=== PATIENT | male | born 1985 | race Caucasian/White ===

== ENCOUNTER → 2022-06-09 | Emergency (ER) | payer BC ==
[~2022-06-09] VITALS: Ht 165.1 cm; Wt 74.8 kg
[~2022-06-09] MED LIST: ACETAMINOPHEN ES 500 MG TABLET ONE; ACETAMINOPHEN ES 500 MG TABLET PO ONE; CYCL5TAB PO; IBUP-1955 PO; IV NS 0.9% 1,000 ML BAG IV ONE; KETOROLAC TROMETHAMINE 15 MG/ML VIAL ONE; KETOROLAC TROMETHAMINE INJ 30 MG/ML VIAL IV ONE; METH4TAB17 PO
--- NOTE | 2022-06-09 09:02 | NUR ---
AAOX3, C/O WORSENING LOWER BACK PAIN RADIATES TO LEFT GROIN AND LEFT TESTICLE. PATIENT REPORTED THAT HE HAD RECENT FALL LAST DECEMBER 2021, BUT STAES THAT HE HAD PRIOR BACK PAIN. SKIN IS WARM AND DRY. AWAITING MD FOR EVAL.
--- NOTE | 2022-06-09 09:12 | NUR ---
DR CASTANEDA AT BS FOR EVAL.
[2022-06-09 09:43] LABS: BASOPHILS % (AUTO) 0.3 % (0.0-2.0); EOSINOPHILS % (AUTO) 0.9 % (0.0-6.0); HEMATOCRIT 47 % (39-51); HEMOGLOBIN 15.9 g/dL (13.5-17.5); LYMPHOCYTES % (AUTO) 32.5 % (20.0-44.0); MEAN CORPUSCULAR HGB CONC 34 g/dl (31.0-36.0); MEAN CORPUSCULAR VOLUME 89 fL (80-96); MONOCYTES # (AUTO) 0.4 K/uL (0.1-1.30); MONOCYTES % (AUTO) 6.5 % (2.0-12.0); NEUTROPHILS # (AUTO) 3.6 K/uL (1.8-8.9); NEUTROPHILS % (AUTO) 59.8 % (43.0-81.0); PLATELET COUNT (AUTO) 234 K/uL (150-450); RED BLOOD CELL COUNT(AUTO) 5.31 MIL/uL (4.5-6.0)
--- NOTE | 2022-06-09 09:43 | NUR ---
established iv line 20g LAC , blood sample obtained sent to lab
--- NOTE | 2022-06-09 10:21 | NUR ---
urine sample obtained sent to lab
[2022-06-09 10:50] LABS: BILIRUBIN,URINE NEGATIVE (NEGATIVE); COLOR,URINE YELLOW (YELLOW); LEUKOCYTE ESTERASE ,URINE NEGATIVE (NEGATIVE); NITRITE, URINE NEGATIVE (NEGATIVE); PROTEIN,URINE NEGATIVE (NEGATIVE); UGLUCOSE NEGATIVE (NEGATIVE); UROBILINOGEN,URINE 0.2 EU/dL (0.2)
[2022-06-09 10:51] LABS: ALBUMIN 4.5 g/dL (3.4-5.0); BILIRUBIN,DIRECT 0.1 mg/dL (0.0-0.2); BILIRUBIN,TOTAL 0.4 mg/dL (0.2-1.0); CALCIUM, SERUM 9.1 mg/dL (8.5-10.1); POTASSIUM 4.2 mmol/L (3.5-5.1); TOTAL PROTEIN, SERUM 8.4 g/dL (6.4-8.2)
--- NOTE | 2022-06-09 12:35 | NUR ---
IV removed. Catheter intact and site benign. Pressure and 4x4 applied to site. No bleeding noted.
[2022-06-09 12:46] VITALS: BP 151/86
--- NOTE | 2022-06-09 12:46 | NUR ---
Patient discharged to home in stable condition. Written and verbal after care instructions given. Patient verbalizes understanding of instruction.
== END | disposition home or self-care (01) ==
LOC: ER 09:18
DX: M54.50 Low back pain, unspecified (principal); Z79.899 Other long term (current) drug therapy
CPT/HCPCS: 99284; 74176; 96374; 96361; 76870; 85025; 80048; 83690; 80076; 81003; 36415; J7030; J1885